=== PATIENT | female | born 1945 | race African-American/Black ===

== ENCOUNTER 2022-05-06 13:20 | Emergency (ER) | payer OTHER ==
[~2022-05-06] VITALS: Ht 165.1 cm; Wt 73.9 kg
--- NOTE | 2022-05-06 13:31 | NUR ---
ALLI CARRASQUILLO - [phone] - DAUGHTER NOEMÍ BRIONES [phone] -DAUGHTER
--- NOTE | 2022-05-06 13:35 | NUR ---
RECEIVED PT 76 YRS FEMALE CAME BY MAGY FROM HOME S/P FALL DOWN AT HOME YESTERDAY HAIE HERE HEAD OPEN WOUND ON LT UPPER SIDE OF FACE
[2022-05-06] MEDS ORDERED: IV NS 0.9% 1,000 ML BAG IV ONE (14:00)
--- NOTE | 2022-05-06 14:14 | NUR ---
MOVE SHEET SUBMITTED.
--- NOTE | 2022-05-06 14:40 | NUR ---
PT HEARD SICK INSERTED ANGOCATHETER G 20 ON RT UPPER ARM WITH US GIDED BLOOD DROW AND SENT TO LAB BC X DROW SENT TO LAB
--- NOTE | 2022-05-06 15:15 | NUR ---
COVID SWAB SENT TO LAB
[2022-05-06 15:29] LABS: BASOPHILS % (AUTO) 0.2 % (0.0-2.0); EOSINOPHILS % (AUTO) 0.2 % (0.0-6.0); HEMATOCRIT 40 % (33-45); HEMOGLOBIN 12.8 g/dL (11.5-14.8); LYMPHOCYTES # (AUTO) 1.3 K/uL (0.8-4.8); LYMPHOCYTES % (AUTO) 15.5 % (20.0-44.0); MEAN CORPUSCULAR HGB CONC 32 g/dl (31.0-36.0); MEAN CORPUSCULAR VOLUME 87 fL (82-100); MONOCYTES # (AUTO) 0.6 K/uL (0.1-1.30); MONOCYTES % (AUTO) 7.2 % (2.0-12.0); NEUTROPHILS # (AUTO) 6.6 K/uL (1.8-8.9); NEUTROPHILS % (AUTO) 76.9 % (43.0-81.0); PLATELET COUNT (AUTO) 350 K/uL (150-450); RED BLOOD CELL COUNT(AUTO) 4.59 MIL/uL (4.0-5.2); WHITE BLOOD COUNT (AUTO) 8.6 K/uL (4.3-11.0)
--- NOTE | 2022-05-06 15:35 | NUR ---
TO CT SCAN OF HEAD
--- NOTE | 2022-05-06 15:49 | NUR ---
KELVIN GENAO [phone] WILL LOOK FOR BEDS AND CALL US BACK.
[2022-05-06 16:00] LABS: CALCIUM, SERUM 9.2 mg/dL (8.5-10.1); CARBON DIOXIDE 32 mmol/L (21-32); CHLORIDE 104 mmol/L (98-107); CREATININE 0.7 mg/dL (0.6-1.3); GLUCOSE 92 mg/dL (74-106); POTASSIUM 3.3 mmol/L (3.5-5.1); SODIUM SERUM 142 mmol/L (136-145); UREA NITROGEN, BLOOD 6 mg/dL (7-18)
--- NOTE | 2022-05-06 16:30 | NUR ---
DR. RODRÍGUEZ SPEAKING WITH DR. HERNANDEZ.
--- NOTE | 2022-05-06 16:41 | NUR ---
[facility] DAUGHTER [phone] OTHER SISTER IS ALLI CARRASQUILLO [phone].
--- NOTE | 2022-05-06 17:30 | NUR ---
PT PASS SWALLOW NO DIFFECULTY
--- NOTE | 2022-05-06 18:00 | NUR ---
I&O CATHETER DONE 250 ML COUDY YELLOW COLOR UA SENT TO LAB
[2022-05-06 18:53] LABS: BILIRUBIN,URINE 1+ (NEGATIVE); COLOR,URINE YELLOW (YELLOW); LEUKOCYTE ESTERASE ,URINE TRACE (NEGATIVE); NITRITE, URINE NEGATIVE (NEGATIVE); PROTEIN,URINE NEGATIVE (NEGATIVE); UGLUCOSE NEGATIVE (NEGATIVE)
[2022-05-06 19:07] LABS: BACTERIA,URINE 4+ /HPF (None Seen); SQUAMOUS EPITHELIAL CELL,UR Few /HPF (None Seen); WBC,URINE TOO NUMEROUS TO COUN /HPF (0-3)
--- NOTE | 2022-05-06 19:16 | NUR ---
KELVIN GENAO [phone] REQUESTING CLINICALS FAXED TO [phone] WHEN COMPLETED.
--- NOTE | 2022-05-06 19:43 | NUR ---
HAND OFF JESSICA BOWEN
[2022-05-06 19:46] LABS: ALANINE AMINOTRANSFERASE 36 U/L (12-78); ALBUMIN 3.2 g/dL (3.4-5.0); ALKALINE PHOSPHATASE 90 U/L (46-116); ASPARTATE AMINOTRANSFERASE 41 U/L (15-37); BILIRUBIN,DIRECT 0.2 mg/dL (0.0-0.2); BILIRUBIN,TOTAL 0.6 mg/dL (0.2-1.0); TOTAL PROTEIN, SERUM 7.2 g/dL (6.4-8.2)
[2022-05-06] MEDS ORDERED: IV NS 0.9% 1,000 ML IV ONE (20:00)
[2022-05-06] MEDS ORDERED: CEFTRIAXONE 1GM BAG (ER ONLY) 1 GM/50 ML PIGGYBACK IV ONE (20:00)
--- NOTE | 2022-05-06 20:08 | NUR ---
RECIEVED PT IN ER BED 4. PT IS RESTING W/ EYES CLOSED. RR EVEN AND NON LABORED. CONNECTED TO POX AND HEART MONITOR. VSS. WILL CONTINUE TO MONITOR.
[2022-05-06] MEDS ORDERED: CEFTRIAXONE 1GM BAG (ER ONLY) 50 ML IV ONE (20:12)
[2022-05-06 20:30] LABS: THYROID STIMULATING HORMONE 0.929 uIU/mL (0.358-3.74)
--- NOTE | 2022-05-06 23:48 | NUR ---
PER SALLY FROM [facility] WILL BE DONE IN THE AM
--- NOTE | 2022-05-07 08:45 | NUR ---
PT RESTING IN BED. AWAKE. BREATHING EVEN AND UNLABORED. VSS.
--- NOTE | 2022-05-07 09:21 | NUR ---
LEANNE GENAO [facility] [phone] REQUESTING MD NOTES. FAX: [phone]
--- NOTE | 2022-05-07 10:14 | NUR ---
pt is sleeping in bed. vss. breathing even and unlabored.
--- NOTE | 2022-05-07 11:11 | NUR ---
LEANNE GENAO CALLED, SHE ASKED DAUGHTER ABOUT WHICH FACILITY SHE WOULD LIKE TO GO TO. AWAITING TO HEAR BACK FROM DAUGHTER. TWO ACCEPTING FACILITIES ARE: [facility] OR [facility].
--- NOTE | 2022-05-07 11:12 | NUR ---
DAUGHTER AT BEDSIDE.
--- NOTE | 2022-05-07 12:08 | NUR ---
CALLED LEANNE GENAO [facility] [phone] LEFT [facility] THAT DAUGHTER WANTS TO GO TO [place]
--- NOTE | 2022-05-07 12:09 | NUR ---
CALLED [facility] FOR TRANSPORT ETA 30 MINS.
--- NOTE | 2022-05-07 12:11 | NUR ---
CAPPING MACHINE OPERATOR AT BEDSIDE ASSISTING WITH FEEDING THE PATIENT.
--- NOTE | 2022-05-07 12:20 | NUR ---
[facility] CALL [phone] GANDHI.
--- NOTE | 2022-05-07 12:27 | NUR ---
REPORT GIVEN TO CARA FOR CONTINUITY OF CARE.
--- NOTE | 2022-05-07 12:50 | NUR ---
[facility] AT [facility]ED[facility] FOR PICKUP.
[2022-05-07 14:13] VITALS: BP 158/88
== END 2022-05-07 12:50 ==
LOC: ER 13:45
DX: S00.83XA Contusion of other part of head, initial encounter (principal); R41.82 Altered mental status, unspecified; Z20.822 Contact with and (suspected) exposure to COVID-19; I10 Essential (primary) hypertension; E11.9 Type 2 diabetes mellitus without complications; F03.90 Unspecified dementia, unspecified severity, without behavioral disturbance, psychotic disturbance, mood disturbance, and anxiety; W18.30XA Fall on same level, unspecified, initial encounter; Y93.89 Activity, other specified; Y92.89 Other specified places as the place of occurrence of the external cause; Y99.8 Other external cause status
CPT/HCPCS: 99285; 72125; 96365; 71045; 96361; 87426; 51701; 72170; 70450; 70486; 85025; 80048; 82550; 87040 ×2; 87086; 83605; 80076; 36415; 84443; 84484; 82553; 80307; 81001; 93005; J7030 ×2; J0696; C9803